=== PATIENT | female | born 1975 | race Caucasian/White ===

== ENCOUNTER 2018-12-28 05:54 | Day surgery (SDC) | payer OTHER ==
[~2018-12-28] VITALS: Ht 149.9 cm; Wt 62.5 kg
[2018-12-28] VITALS (15 sets, daily range): BP systolic 109–159; BP diastolic 55–95; PULSE 81–93; RESP 8–18; Ht 149.9 cm; Wt 62.5 kg
[2018-12-28] MEDS ORDERED: CIPROFLOXACIN 400 MG in D5W 200 ML IVPB SCH (06:00)
[2018-12-28] MEDS ORDERED: IOHEXOL 300MG/ML 30 ML BTL ONE (06:49)
[2018-12-28] MEDS ORDERED: ATOR20TA38 PO (07:05)
--- NOTE | 2018-12-28 07:05 | PREAC ---
Date/Time of Note Date/Time of Note DATE: 12/28/18 TIME: 07:03 Anesthesia Eval and Record Evaluation Time Pre-Procedure Interview DATE: 12/28/18 TIME: 07:03 Age 43 Sex female NPO: 8 hrs Preoperative diagnosis kidney stones Planned procedure LEFT ESWL, LEFT retrograde pyelogram, LEFT ureteral stent Past Medical History Past Medical History: Includes Cardio: Dyslipidemia Surgery & Anesthesia Issues No known issue Meds Anticoagulation: No Beta Parish within 24 hr: No Reason Beta Parish not given: Pt. not on B-Parish Current Medications Ciprofloxacin/ Dextrose 200 ml @ 200 mls/hr PREOP IVPB ; Start 12/28/18 at 06:00; Stop 12/28/18 at 17:00 Meds reviewed: Yes Allergies Coded Allergies: Penicillins (Unverified Allergy, Intermediate, 12/27/18) Allergies Reviewed: Yes Labs/Studies Labs Reviewed: Reviewed by anesthesiologist test: Negative Studies: ECG, CXR Pre-procedure Exam Airway: Adequate mouth opening, Adequate thyromental dist Mallampati: Mallampati II Teeth: Normal Lung: Normal Heart: Normal ASA Physical Status ASA physical status: 2 Emergency: None Planned Anesthetic General/MAC: LMA Planned Pain Management Parenteral pain med, Local by surgeon Pre-operative Attestations Prior to commencing anesthesia and surgery, the patient was re-evaluated, there was verification of: *The patient's identity *The results of appropriate recent lab work and preoperative vital signs *The above evaluation not changing prior to induction *Anesthetic plan, risk benefits, alternative and complications discussed with patient/family; questions answered; patient/family understands, accepts and wishes to proceed. DUKE BRIAN Dec 28, 2018 07:05
[2018-12-28] MEDS ORDERED: PROPOFOL 20 ML ONE (07:08)
[2018-12-28] MEDS ORDERED: LIDOCAINE 2% (SDV) 5 ML INJ ONE (07:08)
[2018-12-28] MEDS ORDERED: FENTAnyl 50 MCG/ML VIAL ONE (07:09)
[2018-12-28] MEDS ORDERED: FENTAnyl 50 MCG/ML VIAL IV PRN ×3 (07:30)
[2018-12-28] MEDS ORDERED: hydrALAzine 20 MG INJ IV PRN (07:30)
[2018-12-28] MEDS ORDERED: ONDANSETRON 4 MG INJ IV PRN (07:30)
[2018-12-28] MEDS ORDERED: MEPERIDINE 25 MG INJ IV PRN (07:30)
[2018-12-28] MEDS ORDERED: OXYCODONE/ACETAMINOPHEN (5/325) TAB PO PRN ×2 (07:30)
[2018-12-28] MEDS ORDERED: LABETALOL HCL 20MG INJ IV PRN (07:30)
--- NOTE | 2018-12-28 07:37 | HPN ---
Date/Time of Note Date/Time of Note DATE: 12/28/18 TIME: 07:37 Interval H&P Admission Note Pt. seen H&P reviewed: No system changes BERNICE HAMEED Dec 28, 2018 07:37
[2018-12-28] MEDS ORDERED: ONDANSETRON 4 MG INJ ONE (07:38)
[2018-12-28] MEDS ORDERED: DEXAMETHASONE 4 MG/ML 5 ML INJ ONE (07:38)
[2018-12-28] MEDS ORDERED: LACTATED RINGER'S 1,000 ML IV SCH (08:00)
--- NOTE | 2018-12-28 09:20 | PDOCDIS ---
Discharge Instructions DIAGNOSIS Discharge Diagnosis Left ureteral stone CONDITION [id number] Patient Condition: Emazk0b Good HOME CARE INSTRUCTIONS: [id number] Diet Instructions: Jkwzq2p Regular ACTIVITY: Wenig4Gn Activity Restrictions: Iwinv4d Slowly Increase Activity Fkaoe0Lt Bathing Restrictions: Stqvk9p Shower FOLLOW UP/APPOINTMENTS Follow-up Plan Obtain x ray, KUB, in 2 weeks, then follow up in office for removal of stent REFERRALS Mikki Referring Provider: BERNICE Rocha OTHER ORDERS: Other Orders: Stent must be removed in less than 3 months to avoid complications. Suggest timely removal in 2 weeks BERNICE HAMEED Dec 28, 2018 09:20
--- NOTE | 2018-12-28 09:22 | OPR ---
Date/Time of Note Date/Time of Note DATE: 12/28/18 TIME: 09:21 Operative Report Procedure Date: Dec 28, 2018 Preoperative Diagnosis Left ureteral stone Postoperative Diagnosis Impacted 8 x 10 mm proximal left urteral stone Operation/Procedure Performed Cysto, left RGP, insertio left ureteral stent, left ESWL Surgeon Meli [employer] Communications Manager none Anesthesia Type: general Estimated Blood Loss: minimal Transfusion none Specimen none Grafts/Implants none Tubes/Drains 22 f 4.8 f stent Complications none Pt Condition Post Procedure: stable Disposition: PACU Indications stone Procedure Description dict [id number] BERNICE HAMEED Dec 28, 2018 09:22
--- NOTE | 2018-12-28 10:26 | OPR ---
DATE OF OPERATION: 12/28/2018 PREOPERATIVE DIAGNOSIS: Impacted proximal left ureteral calculi. POSTOPERATIVE DIAGNOSIS: Impacted 10 x 8 mm left ureteral calculi. OPERATION PERFORMED: Cystoscopy, left retrograde pyelogram, insertion of left ureteral stent, left e xtracorporeal shockwave lithotripsy. SURGEON: Allen Garrison MD ANESTHESIA: General. COMPLICATIONS: None. DRAINS: A 22 cm 4.8-Bolivian double-J ureteral stent. DESCRIPTION OF PROCEDURE: The patient was brought to the operating room and placed on the [employer] ulith SLX lithotripter for left extracorporeal shockwave lithotripsy. Preoperatively, she was counse led on the procedure, how the procedure is performed, potential complications, and potential for sta ged intervention and importance of timely removal of a stent, less than 3 months with a rn ostomy. Patient was placed on the [employer] SLX lithotripter. Sequential compression devices were appli ed. She received preoperative antibiotic therapy and a timeout was undertaken. A KUB with obliques demonstrates a 10 x 8 mm stone overlying the proximal aspect of the left ureter outside of the renal fossa/shadow. The stone burden was placed in the appropriate focal point in the AP and lateral proje ction, which allowed for left extracorporeal shockwave lithotripsy with initial energy setting of 1, which was progressively increased to 8 with a total of 3000 shocks being delivered with intermittent fluoroscopy being utilized. As the stone was not breaking up at an energy level of 7 after 1000 shoc ks, it was increased to 8 at which point fragmentation was noted. A very dense stone could be noted. A total of 3000 shocks were delivered with fragmentation of the stone. The patient was thus reposi tioned on the table for cystoscopy and insertion of a stent. Pelvic examination demonstrates a large cystocele and rectocele. The cystocele was decompressed. Rigid cystoscopy was undertaken with a 12 -degree and 30-degree angle lens. No abnormalities of the urethra or bladder could be appreciated. Bilateral ureteral orifices within normal limits. Gross hematuria from the left ureteral orifice was appreciated without any clots. A 5-Bolivian open-ended catheter was placed into the left ureter and l eft retrograde pyelogram was undertaken demonstrating complete obstruction of the left ureter due to the impacted nature of the stone. The open-ended catheter was placed up to the level of the stone, but with gentle manipulation, the open-ended catheter was not able to pass into a more proximal regio n and thus with gentle manipulation a Glidewire was easily passed proximal to this region and up to t he level of the renal fossa. This allowed for the open-ended catheter to be placed over the wire up into the upper pole where retrograde pyelogram was undertaken demonstrating marked high grade dilatio n of the renal pelvis with marked dilatation of the major and minor calices and 30 mL of urine was dr ained from the kidney which then allowed for a wire to be placed into the renal pelvis. Overlying th e wire, a 4.8-Bolivian 22 cm stent was placed with the proximal aspect coiling within the renal pelvis and the distal aspect coiling within the bladder. Attached to the distal limb was a string. P mireya positioning was confirmed with direct vision fluoroscopy and a KUB. Her bladder was emptied an d she was transferred to recovery room in stable condition. She will be discharged home today on Nor co 5/325 one tab p.o. q.6h. p.r.n., dispensed #30, no refill. A KUB with obliques will be taken in 2 weeks' time. If significant stone burden is still appreciated, a staged intervention will be under taken and if no further stone burden is appreciated then hopeful cysto stent removal. Once again imp ortance of timely removal of stent, less than 3 months to avoid encrustation and complications has be en stressed to the patient on multiple occasions. All questions have been answered. Dictated By: ALLEN NARVAEZ/ELIZABET Conf#: [id number] DID#: [id number]
--- NOTE | 2018-12-28 13:13 | PAC ---
Date/Time of Note Date/Time of Note DATE: 12/28/18 TIME: 13:12 Post-Anesthesia Notes Post-Anesthesia Note Last documented vital signs Vital Signs Date Temp Pulse Resp B/P (MAP) Pulse Ox O2 O2 Flow FiO2 Time Delivery Rate 12/28/18 96.9 91 18 137/82 98 Room Air 10:10 (100) 12/28/18 8.0 09:28 Activity: WNL Respiratory function: WNL Cardiovascular function: WNL Mental status: Baseline Pain reasonably controlled: Yes Hydration appropriate: Yes Nausea/Vomiting absent: Yes DUKE BRIAN Dec 28, 2018 13:12
== END 2018-12-28 10:36 | disposition home or self-care (01) ==
LOC: SDS 05:54
PROVIDERS: ATTEND Urology
DX: N20.1 Calculus of ureter (principal); E78.5 Hyperlipidemia, unspecified
CPT/HCPCS: 52356; 84703; C2617; J0744; J1100; J2405; J3010; Q9967; Z7512; Z7610